=== PATIENT | male | born 1975 | race Two or more races ===

== ENCOUNTER 2019-01-06 14:37 | Emergency (ER) | payer MEDICAID ==
[~2019-01-06] VITALS: Ht 167.6 cm; Wt 65.8 kg
--- NOTE | 2019-01-06 15:01 | NUR ---
C/O CHEST PAIN, SHARP, SINCE LAST NIGHT 12/04 PS. FEELS LIKE "RUBBER BAND TIGHTENINIG" ON THE LEFT SIDE. ALSO C/O RIGHT LEG PAIN FROM PREVIOUS INJURY. DENIES SOB, DIZZINESS, WEAKNESS. NO ACUTE DISTRESS NOTED. ON MONITOR AND READY FOR EVAL.
[2019-01-06] MEDS ORDERED: HYDROCODONE/APAP 5/325MG 1 EACH TABLET ONE (15:21)
[2019-01-06 15:28] LABS: BASOPHILS # (AUTO) 0.1 /CMM (0.0-0.2); HEMOGLOBIN 15.3 g/dL (13.5-17.5); MONOCYTES # (AUTO) 0.6 /CMM (0.1-1.30)
[2019-01-06] MEDS ORDERED: HYDROCODONE/APAP 5/325MG 1 EACH TABLET PO ONE (15:30)
[2019-01-06 15:35] LABS: BASOPHILS % (AUTO) 0.9 % (0.0-2.0); EOSINOPHILS % (AUTO) 2.5 % (0.0-6.0); HEMATOCRIT 45 % (39-51); LYMPHOCYTES # (AUTO) 1.8 /CMM (0.8-4.8); LYMPHOCYTES % (AUTO) 22.9 % (20.0-44.0); MEAN CORPUSCULAR HGB CONC 34 g/dl (31.0-36.0); MEAN CORPUSCULAR VOLUME 86 fL (80-96); MONOCYTES % (AUTO) 7.3 % (2.0-12.0); NEUTROPHILS # (AUTO) 5.2 /CMM (1.8-8.9); NEUTROPHILS % (AUTO) 66.4 % (43.0-81.0); PLATELET COUNT (AUTO) 216 /CMM (150-450); RED BLOOD CELL COUNT(AUTO) 5.22 MIL/uL (4.5-6.0); WHITE BLOOD COUNT (AUTO) 7.8 K/uL (4.3-11.0)
[2019-01-06 15:39] LABS: CALCIUM, SERUM 8.4 mg/dL (8.5-10.1); CARBON DIOXIDE 25 mmol/L (21-32); CHLORIDE 109 mmol/L (98-107); CREATININE 1.1 mg/dL (0.6-1.3); GLUCOSE 115 mg/dL (74-106); POTASSIUM 4.2 mmol/L (3.5-5.1); SODIUM SERUM 143 mmol/L (136-145); UREA NITROGEN, BLOOD 15 mg/dL (7-18)
--- NOTE | 2019-01-06 16:46 | NUR ---
Patient discharged to home in stable condition. Written and verbal after care instructions given. Patient verbalizes understanding of instruction.
[2019-01-06 16:52] VITALS: BP 108/70
== END 2019-01-06 16:50 | disposition home or self-care (01) ==
LOC: ER 14:41
DX: R07.89 Other chest pain (principal); G62.9 Polyneuropathy, unspecified; I44.4 Left anterior fascicular block
CPT/HCPCS: 36415; 71045-TC; 80048-TC; 84484-TC; 85025-TC; 85378-TC